=== PATIENT | female | born 1940 | race Caucasian/White ===

== ENCOUNTER 2017-06-20 15:09 | Inpatient (IN) | payer MEDICARE ==
[~2017-06-20] VITALS: Ht 162.6 cm; Wt 89.9 kg
[2017-06-20] VITALS (9 sets, daily range): BP systolic 112–135; BP diastolic 58–71; PULSE 90–107; RESP 16–18; TEMP 98.6–101; O2SAT 88–97
[2017-06-20] MEDS ORDERED: ASPI-516 CHEW (16:02)
[2017-06-20] MEDS ORDERED: ATEN25TA PO (16:02)
[2017-06-20] MEDS ORDERED: ATEN50TA PO (16:02)
[2017-06-20] MEDS ORDERED: METF500T PO (16:02)
[2017-06-20] MEDS ORDERED: METH1TAB2 PO (16:03)
--- NOTE | 2017-06-20 16:29 | PD ---
HPI Chief Complaint: Cold / Flu Symptoms Time Seen by Provider: 15:47 Travel History International Travel<30 days: No Contact w/Intl Traveler<30days: No Traveled to known affect area: No History of Present Illness HPI 77-year-old female came to the emergency room with history of fever, cough, shortness of breath, vomiting, generalized body and not feeling well for past 2 days. No known sick contacts. Patient is originally from [place] and is visiting here. He does not have any history of asthma or COPD. Patient is not a smoker. She got her flu shot this winter. Vital signs were relatively stable upon arrival in triage. No history of chest pain. [facility] Past Medical History Narrative Medical List of her past medical, surgical, social and family history is reviewed from the nursing note. Atrial Fibrillation: Yes Heart Rhythm Problems: Yes (A FIB) Cancer: Yes (RENAL CELL) Cardiac Catheterization: Yes (W/ ABLATION) Diabetes: Yes Patient Takes Glucophage: Yes Influenza Vaccination: Yes ?: Not Past Surgical History Eye Surgery: Yes (CATARACT) Genitourinary Surgery: Yes (NEPHRECTOMY) Hysterectomy: Yes Pacemaker: Yes Social History Alcohol Use: Yes (RARELY) Tobacco Use: No Substance Use: No Allergies-Medications (Allergen,Severity, Reaction): Coded Allergies: cefaclor (Verified Allergy, Unknown, RASH, 06/20/17) Comments List of her allergies reviewed from the nursing note. Reported Meds & Prescriptions Reported Meds & Active Scripts Active Reported Methenamine Hippurate 1 Gram Tab 1 Gm PO BID Aspirin 81 Mg Chew 81 Mg CHEW DAILY Metformin (Metformin HCl) 500 Mg Tab 750 Mg PO HS Atenolol 50 Mg Tab 50 Mg PO HS Atenolol 25 Mg Tab 25 Mg PO DAILY Narrative Medication List of her home medications reviewed from the nursing note. Review of Systems Except as stated in HPI: all other systems reviewed are Neg General / Constitutional: Positive: Fever Respiratory: Positive: Cough, Shortness of Breath Gastrointestinal: Positive: Nausea, Vomiting Musculoskeletal: Positive: Myalgias Physical Exam Narrative GENERAL: Awake, alert, moderate distress SKIN: Focused skin assessment warm/dry. HEAD: Atraumatic. Normocephalic. EYES: Pupils equal and round. No scleral icterus. No injection or drainage. ENT: No nasal bleeding or discharge. Dry mucous membrane. NECK: Trachea midline. No JVD. CARDIOVASCULAR: Regular rate and rhythm. No murmur appreciated. RESPIRATORY: Decreased air entry bilaterally. End expiratory wheeze GASTROINTESTINAL: Abdomen soft, non-tender, nondistended. Hepatic and splenic margins not palpable. MUSCULOSKELETAL: No obvious deformities. No clubbing. No cyanosis. No edema. NEUROLOGICAL: Awake and alert. No obvious cranial nerve deficits. Motor grossly within normal limits. Normal speech. PSYCHIATRIC: Appropriate mood and affect; insight and judgment normal. Data Data Last Documented VS Vital Signs Date Time Temp Pulse Resp B/P (MAP) Pulse Ox O2 Delivery O2 Flow Rate FiO2 06/20/17 18:05 93 3.00 06/20/17 17:55 Room Air 06/20/17 17:22 101 18 06/20/17 15:15 99.2 Orders Orders Complete Blood Count With Diff (06/20/17 16:36) Basic Metabolic Panel (Bmp) (06/20/17 16:36) B-Type Natriuretic Peptide (06/20/17 16:36) Troponin I (06/20/17 16:36) Influenzae A/B Antigen (06/20/17 16:36) Blood Culture (06/20/17 16:36) Iv Access Insert/Monitor (06/20/17 16:36) Electrocardiogram (06/20/17 16:36) Ecg Monitoring (06/20/17 16:36) Oximetry (06/20/17 16:36) Oxygen Administration (06/20/17 16:36) Chest, Single Ap (06/20/17 16:36) Sodium Chloride 0.9% Flush (Ns Flush) (06/20/17 16:45) Methylprednisolone So Succ Inj (Solumedr (06/20/17 16:45) Albuterol-Ipratropium Neb (Duoneb Neb) (06/20/17 16:45) Albuterol Neb (Albuterol Neb) (06/20/17 18:15) Admit Order (Ed Use Only) (06/20/17 18:11) Acetaminophen (Tylenol) (06/20/17 18:15) Labs Laboratory Tests Test 06/20/17 16:55 White Blood Count 3.8 TH/MM3 Red Blood Count 4.50 MIL/MM3 Hemoglobin 12.6 GM/DL Hematocrit 38.5 % Mean Corpuscular Volume 85.4 FL Mean Corpuscular Hemoglobin 27.9 PG Mean Corpuscular Hemoglobin Concent 32.7 % Red Cell Distribution Width 13.5 % Platelet Count 157 TH/MM3 Mean Platelet Volume 9.1 FL Neutrophils (%) (Auto) 63.8 % Lymphocytes (%) (Auto) 19.8 % Monocytes (%) (Auto) 14.7 % Eosinophils (%) (Auto) 0.9 % Basophils (%) (Auto) 0.8 % Neutrophils # (Auto) 2.4 TH/MM3 Lymphocytes # (Auto) 0.8 TH/MM3 Monocytes # (Auto) 0.6 TH/MM3 Eosinophils # (Auto) 0.0 TH/MM3 Basophils # (Auto) 0.0 TH/MM3 CBC Comment DIFF FINAL Differential Comment Blood Urea Nitrogen 13 MG/DL Creatinine 0.78 MG/DL Random Glucose 128 MG/DL Calcium Level 8.3 MG/DL Sodium Level 137 MEQ/L Potassium Level 3.7 MEQ/L Chloride Level 102 MEQ/L Carbon Dioxide Level 26.1 MEQ/L Anion Gap 9 MEQ/L Estimat Glomerular Filtration Rate 72 ML/MIN Troponin I LESS THAN 0.02 NG/ML B-Type Natriuretic Peptide 116 PG/ML MDM Medical Decision Making Medical Screen Exam Complete: Yes Emergency Medical Condition: Yes Medical Record Reviewed: Yes Interpretation(s) Twelve-lead EKG was reviewed by me. Normal sinus rhythm, left axis deviation, nonspecific ST-T wave changes. Heart rate of 85 bpm. Differential Diagnosis Influenza, viral illness, pneumonia Narrative Course 6:09 PM blood test results of back and patient has some leukopenia. Influenza is negative and rest of the blood test results are within acceptable limits. Patient does have some hyperglycemia. She was given 2 DuoNeb. Reassessed her and apparently was better but still some end expiratory wheeze. Patient says she has some headache at this point. I'll give her some Tylenol and 2 more doses of albuterol nebulizer. However her oxygen saturation was noticed to be in notable mid 80s. This was in the room air. Based on this hypoxia I have decided to admit her to the hospital. Patient does not require oxygen at home. She is agreeable to the stay. Procedures EKG Prior to Arrival: No Diagnosis Primary Impression: Viral illness Additional Impressions: Reactive airway disease Qualified Codes: J45.41 - Moderate persistent asthma with (acute) exacerbation Hypoxia Admitting Information Admitting Physician Requests: Admit Scripts Albuterol Neb (Albuterol Neb) 2.5 Mg/3 Ml Neb 2.5 MG NEB Q4HR NEB for Breathing Treatment, #60 NEBULE 0 Refills While awake Prov: Jeff Jack MD 06/22/17 Nebulizer Kit/Tubing/Mout (Nebulizer Kit/Tubing/Mout) 1 Kit Kit KIT .XX DIRECTED for Breathing Treatment, #1 0 Refills Prov: Jeff Jack MD 06/22/17 Nebulizer (Nebulizer) 1 Mis Mis EA .XX DIRECTED for Breathing Treatment, #1 0 Refills Prov: Jeff Jack MD 06/22/17 Albuterol 18 GM Inh (Ventolin Hfa 18 GM Inh) 90 Mcg/Act Aer 1 PUFF INH Q4H Y for SHORTNESS OF BREATH, #1 INHALER 0 Refills Prov: Jeff Jack MD 06/22/17 Prednisone (21) 10 mg tab Dose Pack (Prednisone (21) 10 mg tab Dose Pack) 10 Mg Pack 10 MG PO DIRECTED for Inflammation, #1 DSPK 0 Refills Prov: Jeff Jack MD 06/22/17 Levofloxacin (Levofloxacin) 750 Mg Tablet 750 MG PO DAILY for Infection, #10 TAB 0 Refills Prov: Jeff Jack MD 06/22/17 Radha Martin MD Jun 20, 2017 16:29
[2017-06-20] MEDS ORDERED: SODIUM CHLORIDE 0.9% FLUSH 10 ML FLUSH IVF PRN (16:45)
[2017-06-20] MEDS ORDERED: methylPREDNISolone SOD SUCC 125 MG/2 ML VIAL IV PUSH ONE (16:45)
[2017-06-20] MEDS: RESP: ALBUTEROL 2.5 MG/IPRATROPIUM 0.5 MG NEB (SCH) INH (16:47)
--- NOTE | 2017-06-20 16:57 | RADRPT ---
EXAM DATE/TIME: 06/20/2017 16:39 [facility] COMPARISON: No previous studies available for comparison. INDICATIONS : Coughing and shortness of breath. MEDICAL HISTORY : AFIB, Renal cell cancer, Diabetes. SURGICAL HISTORY : Nephrectomy, Pacemaker, Cardiac cath, Ablation. ENCOUNTER: Initial ACUITY: 3 days PAIN SCORE: 0/10 LOCATION: Bilateral chest FINDINGS: Single AP view of the chest. Dual-lead cardiac pacemaker in place. The lungs are clear. Cardiomediast inal silhouette within normal limits. No evidence of pleural effusion or pneumothorax. CONCLUSION: No acute cardiopulmonary disease identified. Jasper Sotelo MD on June 20, 2017 at 16:54 Board Certified Radiologist. This report was verified electronically.
[2017-06-20 17:12] LABS: AUTOMATED NEUTROPHIL # 2.4 TH/MM3 (1.8-7.7); BASOPHIL % 0.8 % (0.0-2.0); EOSINOPHIL % 0.9 % (0.0-4.0); HEMATOCRIT 38.5 % (35.0-46.0); HEMOGLOBIN 12.6 GM/DL (11.6-15.3); LYMPH % 19.8 % (9.0-44.0); LYMPHOCYTE # 0.8 TH/MM3 (1.0-4.8); MEAN CELL VOLUME 85.4 FL (80.0-100.0); MEAN CORPUSCULAR HEMOGLOBIN 27.9 PG (27.0-34.0); MEAN CORPUSCULAR HGB CONC 32.7 % (32.0-36.0); MEAN PLATELET VOLUME 9.1 FL (7.0-11.0); MONO % 14.7 % (0.0-8.0); MONOCYTE # 0.6 TH/MM3 (0-0.9); NEUT % 63.8 % (16.0-70.0); PLATELET COUNT 157 TH/MM3 (150-450); RED CELL DISTRIBUTION WIDTH 13.5 % (11.6-17.2); WHITE BLOOD COUNT 3.8 TH/MM3 (4.0-11.0)
[2017-06-20 17:20] LABS: CHLORIDE 102 MEQ/L (98-107); SODIUM (NA) 137 MEQ/L (136-145)
[2017-06-20 17:23] LABS: BICARBONATE 26.1 MEQ/L (21.0-32.0); BLOOD UREA NITROGEN 13 MG/DL (7-18); CALCIUM 8.3 MG/DL (8.5-10.1); GLUCOSE,RANDOM 128 MG/DL (74-106)
[2017-06-20 17:27] LABS: CREATININE 0.78 MG/DL (0.50-1.00); GLOMERULAR FILTRATION RATE 72 ML/MIN (>89)
[2017-06-20 17:31] LABS: TROPONIN I LESS THAN 0.02 NG/ML (0.02-0.05)
[2017-06-20] MEDS ORDERED: ACETAMINOPHEN 325 MG TAB PO ONE (18:15)
[2017-06-20] MEDS: RESP: ALBUTEROL 2.5 MG/3 ML NEB (SCH) INH (18:23)
[2017-06-20] MEDS ORDERED: Vancomycin Consult Pharmacy 1 EA OTHER SCH ×2 (19:00→20:00)
[2017-06-20] MEDS ORDERED: SODIUM CHLORID 0.9% 500 ML INJ 500 ML IV ONE (19:00)
[2017-06-20] MEDS ORDERED: RESP: ALBUTEROL 1.25 MG/3 ML NEB (PRN) NEB (19:00)
[2017-06-20] MEDS ORDERED: SODIUM CHLOR 0.9% 1000 ML INJ 1,000 ML IV ONE (19:00)
[2017-06-20] MEDS ORDERED: SODIUM CHLOR 0.9% 250 ML INJ 250 ML IV ONE (19:00)
[2017-06-20] MEDS ORDERED: VANCOMYCIN 1 GM/200 ML PREMIX IV ONE (19:15)
--- NOTE | 2017-06-20 19:50 | HHI.HP ---
HPI Service [facility] Primary Care Physician Non-Staff Admission Diagnosis reactive airway disease, hypoxia, viral illness Diagnoses: Chief Complaint: Shortness of breath Travel History International Travel<30 Days: No Contact w/Intl Traveler <30 Da: No Traveled to Known Affected Are: No History of Present Illness 77 year white female being admitted for acute hypoxic respiratory failure. Patient reports being in her usual state of health until about 1-2 days ago she began experiencing shortness of breath. Has progressed over time and was associated with a wet cough that was ultimately nonproductive. She does endorse some fevers chills and nausea but no vomiting. Denies any diarrhea. She says that as a symptoms because she became worried. She states that she was previously admitted in the hospital sometime within the last year for a similar presentation for acute bronchitis and shortness of breath, this time she wanted to come in and get a head of her symptoms sooner. In the ER she was noted to start spiking temperatures above 101 and was noted to be tachycardic. ER physician relayed to me that her O2 was 81% resting on room air. Reports past medical history of renal cell carcinoma atrial fibrillation and cataracts. Social history: Denies smoking. Review of Systems Except as stated in HPI: all other systems reviewed are Neg Past Family Social History Allergies: Coded Allergies: cefaclor (Verified Allergy, Unknown, RASH, 06/20/17) Physical Exam Vital Signs Vital Signs Date Time Temp Pulse Resp B/P (MAP) Pulse Ox O2 Delivery O2 Flow Rate FiO2 06/20/17 18:42 101.0 106 18 114/62 (79) 97 Nasal Cannula 3.00 06/20/17 18:41 101.0 97 17 112/59 (76) 96 Nasal Cannula 3.00 06/20/17 18:05 93 3.00 06/20/17 17:55 88 Room Air 06/20/17 17:22 101 18 133/61 (85) 94 Room Air 06/20/17 15:15 99.2 90 16 135/71 (92) 94 Physical Exam VS: afebrile GENERAL: Elderly white female, well-nourished, lying in bed, awake, no acute distress SKIN: Warm and dry. EYES: Pupils equal and round. No scleral icterus. No injection or drainage. ENT: No nasal bleeding or discharge. Mucous membranes pink and moist. CARDIOVASCULAR: Regular rate and rhythm. no murmurs RESPIRATORY: No accessory muscle use. Has moderate wheezes bilaterally with slightly diminished breath sounds in the bases GASTROINTESTINAL: Abdomen soft, non-tender, nondistended. Extremities: No clubbing, cyanosis, or edema. No obvious deformities. MUSCULOSKELETAL: adequate muscle bulk and tone for age and habitus NEUROLOGICAL: Awake and alert. No obvious cranial nerve deficits. No facial droop nor slurred speech noted. PSYCHIATRIC: Appropriate mood and affect; insight and judgment normal. Laboratory Laboratory Tests Test 06/20/17 16:55 06/20/17 18:36 06/20/17 19:10 White Blood Count 3.8 Red Blood Count 4.50 Hemoglobin 12.6 Hematocrit 38.5 Mean Corpuscular Volume 85.4 Mean Corpuscular Hemoglobin 27.9 Mean Corpuscular Hemoglobin Concent 32.7 Red Cell Distribution Width 13.5 Platelet Count 157 Mean Platelet Volume 9.1 Neutrophils (%) (Auto) 63.8 Lymphocytes (%) (Auto) 19.8 Monocytes (%) (Auto) 14.7 Eosinophils (%) (Auto) 0.9 Basophils (%) (Auto) 0.8 Neutrophils # (Auto) 2.4 Lymphocytes # (Auto) 0.8 Monocytes # (Auto) 0.6 Eosinophils # (Auto) 0.0 Basophils # (Auto) 0.0 CBC Comment DIFF FINAL Differential Comment Blood Urea Nitrogen 13 Creatinine 0.78 Random Glucose 128 Calcium Level 8.3 Sodium Level 137 Potassium Level 3.7 Chloride Level 102 Carbon Dioxide Level 26.1 Anion Gap 9 Estimat Glomerular Filtration Rate 72 Troponin I LESS THAN 0.02 B-Type Natriuretic Peptide 116 D-Dimer Quantitative (PE/DVT) 0.51 Lactic Acid Level 0.9 Date/Time Source Procedure Growth Status 06/20/17 19:15 Blood Peripheral Aerobic Blood Culture Pending Received 06/20/17 19:15 Blood Peripheral Anaerobic Blood Culture Pending Received 06/20/17 16:00 Nasal Aspirate Influenza Types A,B Antigen (JEAN CLAUDE) - Final NEGATIVE FOR FLU A AND B ANTIGEN.... Complete Result Diagram: 06/20/17 1098 06/20/17 1655 Imaging Last Impressions Hip and Pelvis X-Ray 06/21/17 0000 Signed Impressions: Service Date/Time: Wednesday, June 21, 2017 03:21 - CONCLUSION: No acute disease. Gray Segovia MD Chest X-Ray 06/20/17 1636 Signed Impressions: Service Date/Time: Tuesday, June 20, 2017 16:39 - CONCLUSION: No acute cardiopulmonary disease identified. Jasper Sotelo MD Caprini VTE Risk Assessment Caprini VTE Risk Assessment: Mod/High Risk (score >= 2) Caprini Risk Assessment Model Point Value = 1 Point Value = 2 Point Value = 3 Point Value = 5 Age 41-60 Minor surgery BMI > 25 kg/m2 Swollen legs Varicose veins or History of unexplained or recurrent spontaneous Oral contraceptives or hormone replacement Sepsis (< 1 month) Serious lung disease, including pneumonia (< 1 month) Abnormal pulmonary function Acute myocardial infarction Congestive heart failure (< 1 month) History of inflammatory bowel disease Medical patient at bed rest Age 61-74 Arthroscopic surgery Major open surgery (> 45 min) Laparoscopic surgery (> 45 min) Malignancy Confined to bed (> 72 hours) Immobilizing plaster cast Central venous access Age >= 75 History of VTE Family history of VTE Factor V Leiden Prothrombin [id number] Lupus anticoagulant Anticardiolipin antibodies Elevated serum homocysteine Heparin-induced thrombocytopenia Other congenital or acquired thrombophilia Stroke (< 1 month) Elective arthroplasty Hip, pelvis, or leg fracture Acute spinal cord injury (< 1 month) Prophylaxis Regimen Total Risk Factor Score Risk Level Prophylaxis Regimen 0-1 Low Early ambulation 2 Moderate Order ONE of the following: *Sequential Compression Device (SCD) *Heparin 5000 units SQ BID 3-4 Higher Order ONE of the following medications: *Heparin 5000 units SQ TID *Enoxaparin/Lovenox 40 mg SQ daily (WT < 150 kg, CrCl > 30 mL/min) *Enoxaparin/Lovenox 30 mg SQ daily (WT < 150 kg, CrCl > 10-29 mL/min) *Enoxaparin/Lovenox 30 mg SQ BID (WT < 150 kg, CrCl > 30 mL/min) AND/OR *Sequential Compression Device (SCD) 5 or more Highest Order ONE of the following medications: *Heparin 5000 units SQ TID (Preferred with Epidurals) *Enoxaparin/Lovenox 40 mg SQ daily (WT < 150 kg, CrCl > 30 mL/min) *Enoxaparin/Lovenox 30 mg SQ daily (WT < 150 kg, CrCl > 10-29 mL/min) *Enoxaparin/Lovenox 30 mg SQ BID (WT < 150 kg, CrCl > 30 mL/min) AND *Sequential Compression Device (SCD) Assessment and Plan Assessment and Plan acute hypoxic resp failure - Likely secondary to acute bronchitis - Oxygen supplementation as needed - D-dimer for age adjusted parameters is negative, no need to proceed with the CT scan - in independently reviewed the chest x-ray which appears unremarkable for any acute infiltrates but may possibly have very mild chronic fibrotic changes at best - solumedrol dosing sepsis - Secondary to acute bronchitis - 30 ML/KG normal saline bolus followed by aggressive fluid hydration, lactic acid protocol, blood cultures ordered, starting vancomycin and Zosyn diabetes - LDSS w/ accjenn Physician Certification 2 Midnight Certification Type: Admission for Inpatient Services Order for Inpatient Services The services are ordered in accordance with Medicare regulations or non- Medicare payer requirements, as applicable. In the case of services not specified as inpatient-only, they are appropriately provided as inpatient services in accordance with the 2-midnight benchmark. Estimated LOS (days): 3 3 days is the estimated time the patient will need to remain in the hospital, assuming treatment plan goals are met and no additional complications. Post-Hospital Plan: Not yet determined Jeff Jack MD Jun 20, 2017 19:50
[2017-06-20] MEDS: PIPERACIL-TAZO 3.375 GM PREMIX 50 ML IV SCH (20:42)
[2017-06-20] MEDS: SODIUM CHLOR 0.9% 1000 ML INJ 1,000 ML IV SCH (20:53)
[2017-06-20] MEDS: RESP: ALBUTEROL 2.5 MG/IPRATROPIUM 0.5 MG NEB (SCH) NEB (21:30)
[2017-06-20] MEDS: methylPREDNISolone SOD SUCC 125 MG/2 ML VIAL IV PUSH SCH (22:42)
[2017-06-20] MEDS: ATENOLOL 50 MG TAB PO SCH (22:43)
[2017-06-21] VITALS (8 sets, daily range): BP systolic 110–146; BP diastolic 66–83; PULSE 61–95; RESP 16–20; TEMP 96–97.6; O2SAT 93–98
[2017-06-21] MEDS: SODIUM CHLOR 0.9% 1000 ML INJ 1,000 ML IV SCH (01:11)
[2017-06-21] MEDS: PIPERACIL-TAZO 3.375 GM PREMIX 50 ML IV SCH ×4 (01:50→20:06)
--- NOTE | 2017-06-21 03:51 | RADRPT ---
EXAM DATE/TIME: 06/21/2017 03:21 [facility] COMPARISON: No previous studies available for comparison. INDICATIONS : Evaluate left hip post fall on left side in patient's room. MEDICAL HISTORY : Arthritis. AFIB, Renal cell cancer, Diabetes. SURGICAL HISTORY : Nephrectomy, Pacemaker, Cardiac cath, Ablation ENCOUNTER: Initial ACUITY: 1 day PAIN SCORE: 0/10 LOCATION: Left pelvis FINDINGS: Examination of the left hip was performed with AP Pelvis. The primary and secondary trabecular patte rn of the femoral neck is intact. The hip joint is of normal width without significant sclerosis or bony hypertrophy. The acetabulum is grossly intact. CONCLUSION: No acute disease. Gray Segovia MD on June 21, 2017 at 3:49 Board Certified Radiologist. This report was verified electronically.
[2017-06-21] MEDS: VANCOMYCIN INJ 1,500 MG in SODIUM CHLORID 0.9% 500 ML INJ 500 ML IV SCH (05:20)
[2017-06-21] MEDS ORDERED: GLUCAGON 1 MG/ML VIAL OTHER PRN (08:30)
[2017-06-21] MEDS ORDERED: DEXTROSE 50% IN WATER 50 ML VIAL(D50) IV PUSH PRN (08:30)
[2017-06-21 08:55] LABS: BICARBONATE 24.3 MEQ/L (21.0-32.0); CALCIUM 8.2 MG/DL (8.5-10.1); CREATININE 0.65 MG/DL (0.50-1.00)
[2017-06-21] MEDS: methylPREDNISolone SOD SUCC 125 MG/2 ML VIAL IV PUSH SCH ×2 (09:00→16:28)
[2017-06-21] MEDS ORDERED: PNEUMOCOCCAL POLYVALENT INJ 25 MCG/0.5 ML SYR IM ONE (09:00)
[2017-06-21] MEDS: ATENOLOL 25 MG TAB PO SCH (09:02)
[2017-06-21 10:24] LABS: AUTOMATED NEUTROPHIL # 2.3 TH/MM3 (1.8-7.7); BASOPHIL % 0.7 % (0.0-2.0); HEMATOCRIT 38.6 % (35.0-46.0); HEMOGLOBIN 12.6 GM/DL (11.6-15.3); LYMPH % 19.4 % (9.0-44.0); LYMPHOCYTE # 0.5 TH/MM3 (1.0-4.8); MEAN CELL VOLUME 85.6 FL (80.0-100.0); MEAN CORPUSCULAR HEMOGLOBIN 27.9 PG (27.0-34.0); MEAN CORPUSCULAR HGB CONC 32.6 % (32.0-36.0); MEAN PLATELET VOLUME 9.5 FL (7.0-11.0); MONO % 1.7 % (0.0-8.0); NEUT % 78.2 % (16.0-70.0); PLATELET COUNT 162 TH/MM3 (150-450); RED BLOOD COUNT 4.51 MIL/MM3 (4.00-5.30); RED CELL DISTRIBUTION WIDTH 13.7 % (11.6-17.2); WHITE BLOOD COUNT 2.8 TH/MM3 (4.0-11.0)
--- NOTE | 2017-06-21 12:00 | HHI.PR ---
Subjective Remarks Nursing denies any deterioration since last night. Patient thinks she missed her DuoNeb treatment this morning. Otherwise has no new complaints. Says she really does not feel a lot better since yesterday. Fever spikes have stopped. Patient does report having some orthostatic lightheadedness which resolves when she sits. Objective Vital Signs Date Time Temp Pulse Resp B/P (MAP) Pulse Ox O2 Delivery O2 Flow Rate FiO2 06/21/17 08:00 97.6 63 18 131/82 (98) 95 06/21/17 04:00 96.0 68 16 138/81 (100) 96 06/21/17 00:00 96.4 74 20 110/66 (81) 94 06/20/17 21:00 98.6 106 18 122/68 (86) 93 06/20/17 20:21 96 Nasal Cannula 3.00 06/20/17 20:15 06/20/17 20:03 99.0 107 18 133/58 (83) 94 Nasal Cannula 3.00 06/20/17 18:42 101.0 106 18 114/62 (79) 97 Nasal Cannula 3.00 06/20/17 18:41 101.0 97 17 112/59 (76) 96 Nasal Cannula 3.00 06/20/17 18:05 93 3.00 06/20/17 17:55 88 Room Air 06/20/17 17:22 101 18 133/61 (85) 94 Room Air 06/20/17 15:15 99.2 90 16 135/71 (92) 94 I/O 06/20/17 06/20/17 06/20/17 06/21/17 06/21/17 06/21/17 07:00 15:00 23:00 07:00 15:00 23:00 Intake Total 250 ml 1030 ml 50 ml Balance 250 ml 1030 ml 50 ml Intake Oral 480 ml IV Total 250 ml 550 ml 50 ml # Voids 3 # Bowel Movements 0 Result Diagram: 06/21/17 1006 06/21/17 0820 Objective Remarks Coarse breath sounds bilaterally Unlabored breathing Sitting up in bed A/P Assessment and Plan Acute bronchitis with hypoxia - improving, continue by mouth steroids and antibiotics. sepsis - BCNG x 1 day Jeff Jack MD Jun 21, 2017 12:00
[2017-06-21] MEDS: RESP: ALBUTEROL 2.5 MG/IPRATROPIUM 0.5 MG NEB (SCH) NEB ×3 (12:07→22:10)
--- NOTE | 2017-06-21 12:07 | EKG ---
Date Performed: 06/20/2017 Time Performed: 15:55:42 PTAGE: 77 years EKG: Sinus rhythm NORMAL ECG NO PREVIOUS TRACING DOCTOR: Alex New Interpretating Date/Time 06/21/2017 12:05:18
[2017-06-21] MEDS: INSULIN NovoLIN REGULAR SUPPLEMENTAL SCALE SQ SCH ×3 (12:42→20:07)
[2017-06-21] MEDS: ATENOLOL 50 MG TAB PO SCH (20:06)
[2017-06-22] VITALS: BP 132/72; PULSE 76; RESP 20; TEMP 97.4; O2SAT 93
[2017-06-22] MEDS: VANCOMYCIN INJ 1,500 MG in SODIUM CHLORID 0.9% 500 ML INJ 500 ML IV SCH ×2 (00:17→18:00)
[2017-06-22] MEDS: PIPERACIL-TAZO 3.375 GM PREMIX 50 ML IV SCH ×4 (00:18→20:00)
[2017-06-22] MEDS: methylPREDNISolone SOD SUCC 125 MG/2 ML VIAL IV PUSH SCH ×2 (00:18→09:49)
[2017-06-22] MEDS: RESP: ALBUTEROL 2.5 MG/IPRATROPIUM 0.5 MG NEB (SCH) NEB ×3 (07:32→19:31)
[2017-06-22 07:38] VITALS: O2SAT 97
[2017-06-22 08:00] VITALS: BP 153/82; PULSE 78; RESP 15; TEMP 97.5; O2SAT 99
[2017-06-22] MEDS: ATENOLOL 25 MG TAB PO SCH (09:49)
[2017-06-22] MEDS: INSULIN NovoLIN REGULAR SUPPLEMENTAL SCALE SQ SCH ×4 (09:49→20:32)
[2017-06-22 12:00] VITALS: BP 174/93; PULSE 88; RESP 18; TEMP 97.8; O2SAT 95
[2017-06-22 16:00] VITALS: BP 128/80; PULSE 84; RESP 16; TEMP 97.9; O2SAT 98
[2017-06-22] MEDS ORDERED: LEVO750T3 PO (16:35)
[2017-06-22] MEDS ORDERED: PRED10PA PO (16:35)
[2017-06-22] MEDS ORDERED: VENTAER INH (16:40)
--- NOTE | 2017-06-22 16:40 | HHI.DCPOC ---
Discharge Care Plan Diagnosis: (1) Reactive airway disease (2) Hypoxia (3) Acute bronchitis Goals to Promote Your Health * To prevent worsening of your condition and complications * To maintain your health at the optimal level Directions to Meet Your Goals Take your medications as prescribed Follow your dietary instruction Follow activity as directed Keep your appointments as scheduled Take your immunizations and boosters as scheduled If your symptoms worsen call your PCP, if no PCP go to Urgent Care Center or Emergency Room Smoking is Dangerous to Your Health. Avoid second hand smoke Call the 24-hour hour crisis hotline for domestic abuse at Jeff Jack MD Jun 22, 2017 16:40
[2017-06-22] MEDS ORDERED: ALBU0.08 NEB (16:42)
[2017-06-22] MEDS ORDERED: NEBULIZER1 MI1 (16:42)
[2017-06-22] MEDS ORDERED: NEBUKIT5 (16:42)
--- NOTE | 2017-06-22 16:44 | HHI.PR ---
Subjective Remarks Nursing denies any deterioration since last night. Patient reports she feels much better. Wants to go home. Objective Vital Signs Date Time Temp Pulse Resp B/P (MAP) Pulse Ox O2 Delivery O2 Flow Rate FiO2 06/22/17 16:00 97.9 84 16 128/80 (96) 98 06/22/17 12:00 97.8 88 18 174/93 (120) 95 06/22/17 08:00 97.5 78 15 153/82 (105) 99 06/22/17 07:38 97 21 06/22/17 00:00 97.4 76 20 132/72 (92) 93 06/21/17 22:12 98 Nasal Cannula 1.00 06/21/17 20:00 96.8 78 20 128/75 (92) 93 I/O 06/21/17 06/21/17 06/21/17 06/22/17 06/22/17 06/22/17 07:00 15:00 23:00 07:00 15:00 23:00 Intake Total 1030 ml 1100 ml 600 ml 1780 ml Balance 1030 ml 1100 ml 600 ml 1780 ml Intake Oral 480 ml 600 ml 480 ml IV Total 550 ml 1100 ml 1300 ml # Voids 3 2 4 3 4 # Bowel Movements 0 2 0 1 Result Diagram: 06/21/17 1006 06/21/17 0820 Objective Remarks Clear breath sounds bilaterally, unlabored breathing No cyanosis, on room air A/P Assessment and Plan Acute bronchitis with hypoxia - Hypoxia resolved, wheezing resolved. Stable respiratory status. Stable to be discharged on by mouth steroids and antibiotics. Patient has met maximal benefit from hospitalization and is currently stable for discharge Solu-Medrol dose. Pt was counseled that she could double her home metformin dose until her she completed her steroid regimen. Jeff Jack MD Jun 22, 2017 16:44
[2017-06-22 19:31] VITALS: O2SAT 96
[2017-06-22] MEDS ORDERED: methylPREDNISolone SOD SUCC 125 MG/2 ML VIAL IV PUSH SCH (20:00)
[2017-06-22] MEDS: ATENOLOL 50 MG TAB PO SCH (20:32)
[2017-06-23] MEDS ORDERED: PHARMACY ORDERED LAB ONE (11:45)
--- NOTE | 2017-07-07 16:27 | PQ ---
Physician Query Response Document PATIENT: DEYANIRA MEYERS : 1940 ADMIT DATE: 06/20/2017 6:13 PM DISCH DATE: 06/22/2017 9:00 PM RESPONDING PROVIDER #: [email or web address] QUERY TEXT: Rule Out Sepsis Clarification Sepsis is documented in the Medical Record. Please clarify whether: -- Patient has sepsis - Please document confirmed, suspected or probable causative organism - Please document confirmed, suspected or probable localized infection - Please clarify if sepsis is related to a device - Please clarify if sepsis was present on admission -- Sepsis was ruled out (include corresponding diagnosis for patient?s clinical picture and treatment ) -- Patient had sepsis which is resolved -- Other, please specify If you have any additional questions/comments and/or concerns, please do not hesitate to reach out to the CDI/Coding Hotline, Ext. [phone]. The patient's Clinical Indicators include: H History of Present Illness: In the ER she was noted to start spiking temperatures above 101 and was noted to be tachycardic. ER physician relayed to me that her O2 was 81% resting on room air. (Patient placed on nasal cannula O2 at 3 L/m) Under Assessment and Plan: sepsis - Secondary to acute bronchitis - 30 ML/KG normal saline bolus followed by aggressive fluid hydration, lactic acid protocol, blood cultures ordered, starting vancomycin and Zosyn Diagnosis of sepsis is NOT documented in the Discharge Summary or the Progress Notes. Progress Note 06/21/17: Fever spikes have stopped. All blood cultures show no growth. Lactic acid drawn 06/20/17 at 19:10 was 0.9. Query created by: Jerilyn Servin on 06/27/2017 9:34 AM RESPONSE TEXT: Pt had sepsis upon presentation likely 2/2 bronchitis. Electronically signed by: Jeff Jack 07/07/2017 4:23 PM
== END 2017-06-22 21:00 | disposition home or self-care (01) | DRG 871 ==
LOC: PHED 15:09 → PHEDA 18:13 → PH3B 20:14
PROVIDERS: ADMIT Hospitalist; ATTEND Hospitalist
DX: A41.9 Sepsis, unspecified organism (principal); J96.01 Acute respiratory failure with hypoxia; E11.65 Type 2 diabetes mellitus with hyperglycemia; Z79.84 Long term (current) use of oral hypoglycemic drugs; I48.91 Unspecified atrial fibrillation; J20.9 Acute bronchitis, unspecified; R42 Dizziness and giddiness; Z79.82 Long term (current) use of aspirin; Z85.528 Personal history of other malignant neoplasm of kidney; Z90.5 Acquired absence of kidney
CPT/HCPCS: 71045; 73502; 80048; 82948; 83605; 83880; 84484; 85025; 85379; 87040; 87804; 93005; 94640; 94664; 96374; J2543; J2930; J3370; J7030; J7040; J7050; J7613

== ENCOUNTER 2017-07-17 14:01 | Emergency (ER) | payer MEDICARE ==
[~2017-07-17] VITALS: Ht 162.6 cm; Wt 87.7 kg
[~2017-07-17 14:01] MED LIST: ALBU0.08 NEB; ASPI-516 CHEW; ATEN25TA PO; ATEN50TA PO; LEVO750T3 PO; METF500T PO; METH1TAB2 PO; NEBUKIT5; NEBULIZER1 MI1; PRED10PA PO; VENTAER INH
[2017-07-17 14:34] VITALS: BP 149/85; PULSE 74; RESP 16; TEMP 98.2; O2SAT 96
[2017-07-17 14:47] LABS: BILIRUBIN, URINE NEG (NEG); BLOOD, URINE NEG (NEG); GLUCOSE,URINE NEG (NEG); KETONE, URINE NEG (NEG); NITRITE,URINE NEG (NEG); URINE LEUKOCYTE ESTERASE NEG (NEG)
[2017-07-17 15:02] LABS: URINE COLOR YELLOW (YELLW/STRAW)
[2017-07-17 15:03] LABS: SQUAMOUS EPITHELIAL CELL URINE 0-5 /hpf (0-5); WBC, URINE 0-2 /hpf (0-5)
[2017-07-17] MEDS ORDERED: METF500T PO (15:24)
[2017-07-17] MEDS ORDERED: CIPR100T4 PO (15:24)
--- NOTE | 2017-07-17 15:51 | PD ---
Physical Exam Date Seen by Provider: Jul 17, 2017 Narrative This patient presents at the request of a local urgent care for her new tract infection which is resistant to oral medications. The patient has been on Cipro for the last several days for UTI but the culture indicates resistance to Cipro. However, symptomatically, she is improved. Data Data Last Documented VS Vital Signs Date Time Temp Pulse Resp B/P (MAP) Pulse Ox O2 Delivery O2 Flow Rate FiO2 07/17/17 14:34 98.2 74 16 149/85 (106) 96 Orders Orders Urinalysis - C+S If Indicated (07/17/17 14:07) Labs Laboratory Tests Test 07/17/17 14:30 Urine Color YELLOW Urine Turbidity CLEAR Urine pH 6.0 Urine Specific [place] 1.008 Urine Protein NEG mg/dL Urine Glucose (UA) NEG mg/dL Urine Ketones NEG mg/dL Urine Occult Blood NEG Urine Nitrite NEG Urine Bilirubin NEG Urine Leukocyte Esterase NEG Urine WBC 0-2 /hpf Urine Squamous Epithelial Cells 0-5 /hpf Microscopic Urinalysis Comment CULT NOT INDICATED MDM Supervised Visit with [facility]: Yes Narrative Course I, Dr. Crump, have reviewed the advance practice practitioner's documentation and am in agreement, met with the patient face to face, made the diagnosis, and the medical decision making was done by me. *My assessment and Findings: UA>>no signs of infection. Please see Peyton Louise NP's note for results of laboratory and radiographic evaluation, ED course, final diagnosis and disposition Milady Crump MD Jul 17, 2017 15:51
--- NOTE | 2017-07-17 15:57 | PD ---
HPI Chief Complaint: Complaint Time Seen by Provider: 15:27 Travel History International Travel<30 days: No Contact w/Intl Traveler<30days: No Traveled to known affect area: No History of Present Illness HPI This is a 77-year-old female sent here by urgent care for evaluation and possible treatment with IV antibiotics for her UTI. She was seen on 07/13/17 and [facility] for UTI. She was placed on Cipro. Her culture and sensitivity results revealed growth of Klebsiella pneumonia which was resistant to Cipro, Bactrim, Macrobid. Patient has allergy to cephalosporins leaving limited antimicrobial options for treatment. Patient reports symptom improvement since starting Cipro. She denies fever, chills, abdominal pain, flank pain, dysuria, frequency. She reports history of frequent UTIs usually every 2-3 months which is treated with Cipro. She is here visiting on vacation. She has no medical complaint at this time. She is on day 4 Cipro. SHe feels her symptoms have improved. PFSH Past Medical History Arthritis: Yes Atrial Fibrillation: Yes Heart Rhythm Problems: Yes (A FIB) Cancer: Yes (RENAL CELL) Cardiac Catheterization: Yes (W/ ABLATION) High Cholesterol: Yes Diabetes: Yes Patient Takes Glucophage: Yes Diminished Hearing: No Gastrointestinal Disorders: Yes GERD: Yes Neurologic: No Psychiatric: No Tetanus Vaccination: Unknown ?: Not Past Surgical History Cardiac Surgery: Yes (ablaision, pacemaker) Eye Surgery: Yes (CATARACT) Genitourinary Surgery: Yes (NEPHRECTOMY) Gynecologic Surgery: Yes (hysterectomy) Hysterectomy: Yes Pacemaker: Yes Social History Alcohol Use: Yes (RARELY) Tobacco Use: No Substance Use: No Allergies-Medications (Allergen,Severity, Reaction): Coded Allergies: cefaclor (Verified Allergy, Unknown, RASH, 07/17/17) Reported Meds & Prescriptions Reported Meds & Active Scripts Active Nebulizer Kit/Tubing/Mout (N/A) 1 Kit Kit Kit .XX DIRECTED Nebulizer 1 Mis Mis Ea .XX DIRECTED Reported Ciprofloxacin (Ciprofloxacin HCl) 100 Mg Tab Unknown Dose PO BID Metformin (Metformin HCl) 500 Mg Tab 750 Mg PO DAILY With a meal Methenamine Hippurate 1 Gram Tab 1 Gm PO BID Aspirin 81 Mg Chew 81 Mg CHEW DAILY Atenolol 50 Mg Tab 50 Mg PO HS Atenolol 25 Mg Tab 25 Mg PO DAILY Review of Systems Except as stated in HPI: all other systems reviewed are Neg General / Constitutional: No: Fever Eyes: No: Visual changes HENT: No: Headaches Cardiovascular: No: Chest Pain or Discomfort Respiratory: No: Shortness of Breath Gastrointestinal: No: Abdominal Pain Genitourinary: No: Dysuria Musculoskeletal: No: Pain Skin: No Rash Physical Exam Narrative GENERAL: Alert and well-appearing 77-year-old female SKIN: Warm and dry. HEAD: Normocephalic. EYES: No injection or drainage. NECK: Supple CARDIOVASCULAR: Regular rate and rhythm RESPIRATORY: Breath sounds equal bilaterally. No accessory muscle use. GASTROINTESTINAL: Abdomen soft, non-tender, nondistended. BACK: No CVA tenderness. Data Data Last Documented VS Vital Signs Date Time Temp Pulse Resp B/P (MAP) Pulse Ox O2 Delivery O2 Flow Rate FiO2 07/17/17 14:34 98.2 74 16 149/85 (106) 96 Orders Orders Urinalysis - C+S If Indicated (07/17/17 14:07) Labs Laboratory Tests Test 07/17/17 14:30 Urine Color YELLOW Urine Turbidity CLEAR Urine pH 6.0 Urine Specific [place] 1.008 Urine Protein NEG mg/dL Urine Glucose (UA) NEG mg/dL Urine Ketones NEG mg/dL Urine Occult Blood NEG Urine Nitrite NEG Urine Bilirubin NEG Urine Leukocyte Esterase NEG Urine WBC 0-2 /hpf Urine Squamous Epithelial Cells 0-5 /hpf Microscopic Urinalysis Comment CULT NOT INDICATED MDM Medical Decision Making Medical Screen Exam Complete: Yes Emergency Medical Condition: Yes Differential Diagnosis UTI, pyelonephritis, other Narrative Course This is a 77-year-old female sent by urgent care regarding her urine culture results. Patient is on day 4 Cipro and reports symptom resolution of her UTI. Her urine culture from 07/13/17 at another facility grew out Klebsiella pneumonia. Her UA here demonstrates spontaneous resolution of UTI. There is no evidence of infection. Patient's vital signs are stable. She has no systemic signs of infection. She was instructed to return if she develops any new or worsening symptoms such as fever, abdominal pain, return of UTI symptoms. 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
== END 2017-07-17 16:13 | disposition home or self-care (01) ==
LOC: PHED 14:01 → PHEFT 16:13
DX: N39.0 Urinary tract infection, site not specified (principal); E11.9 Type 2 diabetes mellitus without complications; E78.00 Pure hypercholesterolemia, unspecified; I48.91 Unspecified atrial fibrillation; K21.9 Gastro-esophageal reflux disease without esophagitis; Z95.0 Presence of cardiac pacemaker
CPT/HCPCS: 81001; 99283